=== PATIENT | male | born 1990 | race American Indian/Alaskan Native ===

== ENCOUNTER 2017-04-19 16:32 | Emergency (ER) | payer SELFPAY ==
[2017-04-19 16:35] VITALS: BMI 29.4
[2017-04-19 16:38] VITALS: O2SAT 100
--- NOTE | 2017-04-19 17:03 | ED PDOC ---
Arrival/HPI - General Chief Complaint: Back Pain Time Seen by Provider: 04/19/17 16:38 Historian: Patient - History of Present Illness Narrative History of Present Illness (Text): 04/19/17 17:00 26yo male with no PMHx present with sever lower back pain, 01/27. Pain is with movement. 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 Note that he slipped and fell down 6steps this morning. His pain became worse after the trauma. He took 4tabs of Ibuprofen 6oomg with mild relieve. Denies hitting his head, LOC, urinary/fecal incontinence, focal weakness, abdominal pain, nausea, vomiting, chest pain. Past Medical History - Provider Review Nursing Documentation Reviewed: Yes - Infectious Disease Hx of Infectious Diseases: None - Psychiatric Hx Substance Use: No - Surgical History Other/Comment: b/l knee surgery - Anesthesia Hx Anesthesia: Yes Hx Anesthesia Reactions: No Family/Social History - Physician Review Nursing Documentation Reviewed: Yes Family/Social History: Unknown Family HX Smoking Status: Current Some Days Smoker Hx Alcohol Use: No Hx Substance Use: No Allergies/Home Meds Allergies/Adverse Reactions: Allergies No Known Allergies Allergy (Verified 04/19/17 16:35) Review of Systems - Physician Review All systems were reviewed & negative as marked: Yes - Review of Systems Constitutional: Normal Eyes: Normal ENT: Normal Respiratory: Normal Cardiovascular: Normal Gastrointestinal: Normal Genitourinary Male: Normal Musculoskeletal: Back Pain Skin: Normal Neurological: Normal Endocrine: Normal Hemo/Lymphatic: Normal Psychiatric: Normal Physical Exam Vital Signs Reviewed: Yes Vital Signs Temp Pulse Resp BP Pulse Ox 04/19/17 16:37 98.1 F 79 18 129/77 100 Temperature: Afebrile Blood Pressure: Normal Pulse: Regular Respiratory Rate: Normal Appearance: Positive for: Well-Appearing, Non-Toxic, Comfortable Pain Distress: None Mental Status: Positive for: Alert and Oriented X 3 - Systems Exam Head: Present: Atraumatic, Normocephalic Pupils: Present: PERRL Extroacular Muscles: Present: EOMI Conjunctiva: Present: Normal Mouth: Present: Moist Mucous Membranes Neck: Present: Normal Range of Motion Respiratory/Chest: Present: Clear to Auscultation, Good Air Exchange. No: Respiratory Distress, Accessory Muscle Use Cardiovascular: Present: Regular Rate and Rhythm, Normal S1, S2. No: Murmurs Abdomen: Present: Normal Bowel Sounds. No: Tenderness, Distention, Peritoneal Signs Genitourinary Male: No: Prostate Enlargement Back: Present: Paraspinal Tenderness (B/L), Pain with Leg Raise (Right leg) Upper Extremity: Present: Normal Inspection. No: Cyanosis, Edema Lower Extremity: Present: Normal Inspection. No: Edema Neurological: Present: GCS=15, CN II-XII Intact, Speech Normal Skin: Present: Warm, Dry, Normal Color. No: Rashes Psychiatric: Present: Alert, Oriented x 3, Normal Insight, Normal Concentration Medical Decision Making ED Course and Treatment: 04/19/17 17:40 Pt in ED for stated history. His pain was controlled in ED with Toradol and Valium. LS - No acute fracture noted On re evaluation he notes that his pain improved with medication. He was ambulatory with normal gait. He was neurologically intact. Xray result was DW the pt. He will DC home with NSAID and muscle relaxer for musculoskeletal pain. - RAD Interpretation Radiology Orders: 04/19/17 16:47 LS SPINE WITH OBL > 18 YRS OLD [RAD] Stat - Medication Orders Current Medication Orders: Discontinued Medications Diazepam (Valium) 5 mg PO ONCE ONE PRN Reason: Protocol Stop: 04/19/17 16:49 Last Admin: 04/19/17 16:58 Dose: 5 mg Ketorolac Tromethamine (Toradol) 60 mg IM STAT STA Stop: 04/19/17 16:48 Last Admin: 04/19/17 16:58 Dose: 60 mg MAR Pain Assessment Document 04/19/17 16:58 IT (Rec: 04/19/17 16:58 IT [email or web address]) Pain Reassessment Is this a pain reassessment? No Sleep Is patient sleeping during reassessment? No Presence of Pain Presence of Pain Yes Pain Scale Used Pain Scale Used Numeric Location Pain Location Body Site Back Description Description Constant IM Administration Charges Document 04/19/17 16:58 IT (Rec: 04/19/17 16:58 IT [email or web address]) Injection Site MAR Injection Site Left Deltoid Charges for Administration # of IM Administrations 1 Disposition/Present on Arrival - Present on Arrival Any Indicators Present on Arrival: No History of DVT/PE: No History of Uncontrolled Diabetes: No Urinary Catheter: No History of Decub. Ulcer: No History Surgical Site Infection Following: None - Disposition Have Diagnosis and Disposition been Completed?: Yes Diagnosis: Back strain Disposition: HOME/ ROUTINE Disposition Time: 17:50 Patient Plan: Discharge Condition: STABLE Discharge Instructions (ExitCare): Back Pain (ED) Additional Instructions: Apply warm compress to area, rest and medication follow up with your doctor Return to ED for any new or worsening symptoms Prescriptions: Cyclobenzaprine [Cyclobenzaprine HCl] 10 mg PO TID #12 tab Naproxen [Naprosyn] 500 mg PO BID #20 tablet Forms: [email or web address] (Mozambican), WORK NOTE
[2017-04-19 17:40] VITALS: BP 125/71; PULSE 74
[2017-04-19 17:59] VITALS: RESP 17; TEMP 98
--- NOTE | 2017-04-20 10:54 | RAD ---
PROCEDURE: Radiographs of the Lumbar Spine. HISTORY: back pain s/p trauma COMPARISON: No prior. FINDINGS: BONES: Normal alignment. No listhesis. No fracture. DISC SPACES: Unremarkable. OTHER FINDINGS: None. IMPRESSION: Unremarkable radiographs of the lumbar spine.
== END 2017-04-19 18:00 | disposition home or self-care (01) ==
LOC: ED 16:32
DX: S39.012A Strain of muscle, fascia and tendon of lower back, initial encounter (principal); W10.9XXA Fall (on) (from) unspecified stairs and steps, initial encounter
CPT/HCPCS: 72110; 96372; 99283; J1885

== ENCOUNTER 2017-05-26 03:30 | Emergency (ER) | payer BC ==
[2017-05-26 03:31] VITALS: BMI 29.4
[2017-05-26 03:47] VITALS: RESP 20
[2017-05-26] MEDS ORDERED: Sodium Chloride 0.9% 1,000 ML IV SCH (04:00)
--- NOTE | 2017-05-26 04:14 | ED PDOC ---
Arrival/HPI - General Chief Complaint: Cough, Cold, Congestion Time Seen by Provider: 05/26/17 03:48 Historian: Patient - History of Present Illness Narrative History of Present Illness (Text): 05/26/17 04:13 A 26 year old male presents to the emergency department complaining of fever, weakness, dizziness and nasal congestion for the past several days. Patient reports he hasn't slept. Patient denies any vomiting, chest pain or any other complaints at this time. Time/Duration: < week Symptom Onset: Sudden Symptom Course: Unchanged Activities at Onset: Rest Context: Home Past Medical History - Provider Review Nursing Documentation Reviewed: Yes - Infectious Disease Hx of Infectious Diseases: None - Psychiatric Hx Substance Use: No - Surgical History Other/Comment: b/l knee surgery - Anesthesia Hx Anesthesia: Yes Hx Anesthesia Reactions: No Family/Social History - Physician Review Nursing Documentation Reviewed: Yes Family/Social History: No Known Family HX Smoking Status: Heavy Smoker > 10 Cigarettes Daily Hx Alcohol Use: No Hx Substance Use: No Allergies/Home Meds Allergies/Adverse Reactions: Allergies No Known Allergies Allergy (Verified 05/26/17 03:46) Review of Systems - Physician Review All systems were reviewed & negative as marked: Yes - Review of Systems Constitutional: Fevers, Other (weakness) ENT: Other (nasal congestion) Cardiovascular: absent: Chest Pain Gastrointestinal: absent: Vomiting Neurological: Dizziness Physical Exam Vital Signs Reviewed: Yes Vital Signs Temp Pulse Resp BP Pulse Ox 05/26/17 06:41 98.6 F 60 20 121/87 98 05/26/17 03:46 98.4 F 77 20 138/95 H 100 05/26/17 03:41 98.4 F 82 18 138/95 H 100 Temperature: Afebrile Blood Pressure: Hypertensive Pulse: Regular Respiratory Rate: Normal Appearance: Positive for: Well-Appearing, Non-Toxic, Comfortable Pain Distress: None Mental Status: Positive for: Alert and Oriented X 3 - Systems Exam Head: Present: Atraumatic, Normocephalic Pupils: Present: PERRL Extroacular Muscles: Present: EOMI Conjunctiva: Present: Normal Mouth: Present: Moist Mucous Membranes Neck: Present: Normal Range of Motion Respiratory/Chest: Present: Clear to Auscultation, Good Air Exchange. No: Respiratory Distress, Accessory Muscle Use Cardiovascular: Present: Regular Rate and Rhythm, Normal S1, S2. No: Murmurs Abdomen: Present: Normal Bowel Sounds. No: Tenderness, Distention, Peritoneal Signs Back: Present: Normal Inspection Upper Extremity: Present: Normal Inspection. No: Cyanosis, Edema Lower Extremity: Present: Normal Inspection. No: Edema Neurological: Present: GCS=15, CN II-XII Intact, Speech Normal Skin: Present: Warm, Dry, Normal Color. No: Rashes Psychiatric: Present: Alert, Oriented x 3, Normal Insight, Normal Concentration Medical Decision Making ED Course and Treatment: 05/26/17 04:11 Impression: A 26 year old male with fever, weakness, dizziness and nasal congestion. Plan: -- labs -- Urinalysis -- IV fluids -- Reassess and disposition Prior Visits: Notes and results from previous visits were reviewed. Patient was last seen in the emergency department on 04/19/17 for evaluation of lower back pain. Progress Notes: - Lab Interpretations Microbiology Results: Microbiology Results 05/26/17 04:18 Throat Group A Strep Throat Culture - Final NO BETA STREP GROUP A ISOLATED. Lab Results: 05/26/17 04:18 05/26/17 04:18 Lab Results 05/26/17 04:20: Urine Color Yellow, Urine Appearance Clear, Urine pH 6.0, Ur Specific [place] 1.010, Urine Protein Negative, Urine Glucose (UA) Negative, Urine Ketones Negative, Urine Blood Negative, Urine Nitrate Negative, Urine Bilirubin Negative, Urine Urobilinogen 0.2, Ur Leukocyte Esterase Negative 05/26/17 04:18: Influenza Typ A,B (EIA) Negative for flu a/b, Grp A Beta Strep Ag Negative 05/26/17 04:18: Sodium 139, Potassium 3.8, Chloride 104, Carbon Dioxide 26, Anion Gap 13, BUN 14, Creatinine 1.0, Est GFR ( Amer) > 60, Est GFR (Non- Af Amer) > 60, Random Glucose 143 H, Calcium 8.9, Total Bilirubin 0.5, AST 44, ALT 33, Alkaline Phosphatase 48, Total Protein 7.0, Albumin 4.1, Globulin 3.0, Albumin/Globulin Ratio 1.4 05/26/17 04:18: WBC 8.4, RBC 4.52, Hgb 14.7, Hct 41.8 L, MCV 92.5, MCH 32.5, MCHC 35.2, RDW 12.7, Plt Count 223, MPV 9.0, Gran % 66.7, Lymph % (Auto) 19.5 L , [place] % (Auto) 11.4 H, Eos % (Auto) 2.0, Baso % (Auto) 0.4, Gran # 5.63, Lymph # 1.7, [place] # 1.0 H, Eos # 0.2, Baso # 0.03 I have reviewed the lab results: Yes - Medication Orders Current Medication Orders: Discontinued Medications Sodium Chloride (Sodium Chloride 0.9%) 1,000 mls @ 200 mls/hr IV .Q5H ARMANDO Last Admin: 05/26/17 04:00 Dose: 200 mls/hr eMAR Start Stop Document 05/26/17 04:00 SS (Rec: 05/26/17 05:27 SS [id number]) Intravenous Solution Start Date 05/26/17 Start Time 04:00 - Scribe Statement The provider has reviewed the documentation as recorded by the Valeriaibemilie Unger Provider Scribe Attestation: All medical record entries made by the Scribe were at my direction and personally dictated by me. I have reviewed the chart and agree that the record accurately reflects my personal performance of the history, physical exam, medical decision making, and the department course for this patient. I have also personally directed, reviewed, and agree with the discharge instructions and disposition. Disposition/Present on Arrival - Present on Arrival Any Indicators Present on Arrival: No History of DVT/PE: No History of Uncontrolled Diabetes: No Urinary Catheter: No History of Decub. Ulcer: No History Surgical Site Infection Following: Orthopedic Procedures - Disposition Have Diagnosis and Disposition been Completed?: Yes Diagnosis: Viral syndrome Disposition: HOME/ ROUTINE Disposition Time: 06:45 Condition: GOOD Discharge Instructions (ExitCare): Viral Syndrome (ED) Prescriptions: Fexofenadine/Pseudoephedrine [Minda-D 12 Hour Tablet] 1 each PO BID #14 tab.er.12h Forms: [employer] (Welsh)
[2017-05-26 04:27] LABS: BASO # 0.03 K/mm3 (0.0-2.0); BASO % 0.4 % (0.0-3.0); EOS # 0.2 (0.0-0.7); GRAN # 5.63 (1.4-6.5); GRAN % 66.7 % (50.0-68.0); HEMATOCRIT 41.8 % (42.0-52.0); LYMPH # 1.7 (1.2-3.4); LYMPH % 19.5 % (22.0-35.0); MEAN CELL VOLUME 92.5 fl (80.0-105.0); MEAN CORPUSCULAR HEMOGLOBIN 32.5 pg (25.0-35.0); MEAN CORPUSCULAR HGB CONC 35.2 g/dl (31.0-37.0); MONO % 11.4 % (1.0-6.0); RED CELL DISTRIBUTION WIDTH 12.7 % (11.5-14.5); WHITE BLOOD COUNT 8.4 10^3/ul (4.5-11.0)
[2017-05-26 04:34] LABS: ALB/GLOB RATIO 1.4 (1.1-1.8); BILIRUBIN,TOTAL 0.5 mg/dL (0.2-1.3); CALCIUM 8.9 mg/dL (8.4-10.5); GFR AFRICAN-AMERICAN > 60; GLUCOSE,RANDOM 143 mg/dL (70-110)
[2017-05-26 04:55] LABS: URINE BILIRUBIN NEGATIVE (NEGATIVE); URINE BLOOD NEGATIVE (NEGATIVE); URINE GLUCOSE (UA) NEGATIVE (NEGATIVE); URINE KETONE NEGATIVE (NEGATIVE); URINE LEUKOCYTE ESTERASE NEGATIVE Leu/uL (NEGATIVE); URINE PROTEIN NEGATIVE mg/dL (<30 mg/dL); URINE UROBILINOGEN 0.2 E.U./dL (<1 E.U./dL)
[2017-05-26 04:57] LABS: URINE APPEARANCE CLEAR (CLEAR); URINE COLOR YELLOW (YELLOW)
[2017-05-26 05:16] LABS: ALKALINE PHOSPHATASE 48 U/L (38-126); ALT/SGPT 33 U/L (7-56); AST/SGOT 44 U/L (17-59); BLOOD UREA NITROGEN 14 mg/dL (7-21); CARBON DIOXIDE 26 mmol/L (21-33); CHLORIDE 104 mmol/L (98-107); POTASSIUM 3.8 mmol/L (3.6-5.0); SODIUM 139 mmol/L (132-148)
[2017-05-26 06:42] VITALS: BP 121/87; PULSE 60; TEMP 98.6; O2SAT 98
== END 2017-05-26 06:49 | disposition home or self-care (01) ==
LOC: ED 03:30
DX: B34.9 Viral infection, unspecified (principal); F17.210 Nicotine dependence, cigarettes, uncomplicated
CPT/HCPCS: 80053; 81003; 85025; 87070; 87430; 87804; 99283; J7040

== ENCOUNTER 2018-06-29 20:07 | Observation (INO) | payer SELFPAY ==
[2018-06-29 20:33] VITALS: BMI 29.4
--- NOTE | 2018-06-29 20:38 | ED PDOC ---
Arrival/HPI - General Time Seen by Provider: 06/29/18 20:22 Historian: Patient - History of Present Illness Narrative History of Present Illness (Text): 06/29/18 20:32 27 m with hx lumbar HNP presents to the emergency department with chief complaint severe low back pain radiating into the right leg. Patient recently diagnosed with lumbar HNP, is scheduled for surgery with spinal surgeon in [place]. Patient reports he feels numbness in his right lower leg and tingling/numbness in his proximal medical thigh/groin area which started today with the pain. Patient states he has had numbness in the right foot, but the new areas of numbness he has not experienced before. Patient states this acute exacerbation of pain began while walking at the store. Past Medical History - Provider Review Nursing Documentation Reviewed: Yes - Infectious Disease Hx of Infectious Diseases: None - Psychiatric Hx Substance Use: No - Surgical History Other/Comment: b/l knee surgery - Anesthesia Hx Anesthesia: Yes Hx Anesthesia Reactions: No Family/Social History - Physician Review Nursing Documentation Reviewed: Yes Family/Social History: No Known Family HX Smoking Status: Heavy Smoker > 10 Cigarettes Daily Hx Alcohol Use: No Hx Substance Use: No Allergies/Home Meds Allergies/Adverse Reactions: Allergies No Known Allergies Allergy (Verified 05/26/17 03:46) Home Medications: Home Meds Medication Instructions Recorded Confirmed No Known Home Med 06/29/18 06/29/18 Review of Systems - Physician Review All systems were reviewed & negative as marked: Yes - Review of Systems Musculoskeletal: Back Pain (severe low back pain radiating into the right leg) Neurological: Other (numbness in his right lower leg and tingling/numbness in his proximal medical thigh/groin area) Physical Exam - Physical Exam Narrative Physical Exam (Text): 06/29/18 20:35 Gen: VS reviewed, alert, well developed, well nourished, nontoxic, severe distress second to pain Eye: EOMI, PERRL Neck: no JVD, supple, no adenopathy CV: regular rate, regular rhythm Abd: soft, nontender Ext: no edema Skin: good color, no rash, no cyanosis Psych: responds appropriately to questions, normal affect Neuro: oriented x3, CN2-12 intact grossly, motor intact but full lower extremity exam limited as the patient is in severe pain, there is numbness in the right medial lower leg, there is diminished sensation in the dorsum of the right foot, there is diminished sensation in the saddle area, sensation intact left lower leg. Medical Decision Making ED Course and Treatment: 06/29/18 20:37 Impression: Patient is is severe pain from known lumbar HNP with concern for cauda equina syndrome with new and progressive lower extremity numbness. will need mri lumbar spine tonight. Plan: -- Spinal Canal Lumbar CT -- Toradol -- Morphine -- Percocet -- Reassess and disposition Progress Notes: 06/30/18 02:[address] rodríguez to the hospitalist service. patient to be admitted for intractable pain, recommend spinal surgery consult for possible local intervention for pain. - RAD Interpretation Narrative RAD Interpretations (Text): 06/30/2018 01:[address] IMPRESSION: Moderate focal spondylosis. Straightening of the lumbar lordosis, probably muscular spasm and pain. Dictator: Noé Mckeon MD 06/30/2018 01:19 MRI Lumbar Spine FINDINGS: There is normal signal intensity from the visualized bone marrow without evide nce of replacement or acute fracture. The conus is unremarkable. Straightening of the lumbar lordosis. The vertebral alignment is within normal limits. Evaluation of the individual levels revealed the following: L5-S1: There is moderate focal spondylosis. Findings are demonstrated by disc dehydration, disc space narrowing, osteophyte formation and degenerative endplate changes. Moderate diffuse disc bulge. Bilateral facet joint arthropathy. The spinal canal is not narrowed. There is mild bilateral neural foramina narrowing. L4-5: There is no evidence of disk herniation. The spinal canal is not narrowed. There is no evidence of neural foramina narrowing. L3-4: There is no evidence of disk herniation. The spinal canal is not narrowed. There is no evidence of neural foramina narrowing. L2-3: There is no evidence of disk herniation. The spinal canal is not narrowed. There is no evidence of neural foramina narrowing. L1-2: There is no evidence of disk herniation. The spinal canal is not narrowed. There is no evidence of neural foramina narrowing. Normal visualized paraspinour soft tissue structures. IMPRESSION: Moderate focal spondylosis. Straightening of the lumbar lordosis, probably muscular spasm and pain. Dictator: Noé Mckeon MD Radiology Orders: 06/29/18 20:32 SPINAL CANAL LUMBAR W/O CONT [MRI] Stat - Medication Orders Current Medication Orders: Oxycodone/Acetaminophen (Percocet 5/325 Mg Tab) 2 tab PO STAT STA Stop: 06/29/18 20:33 Disposition/Present on Arrival - Present on Arrival Any Indicators Present on Arrival: No History of DVT/PE: No History of Uncontrolled Diabetes: No Urinary Catheter: No History Surgical Site Infection Following: Orthopedic Procedures - Disposition Have Diagnosis and Disposition been Completed?: Yes Diagnosis: Radiculopathy of lumbosacral region, Intractable back pain Disposition: HOSPITALIZED Disposition Time: 02:52 Patient Plan: Observation Condition: STABLE
[2018-06-29] MEDS: Oxycodone/Acetaminophen 5/325 mg Tab PO STA ×2 (20:53→21:24)
[2018-06-29 21:55] LABS: BLOOD UREA NITROGEN 19 mg/dL (7-21); CALCIUM 9.4 mg/dL (8.4-10.5); GFR NON-AFRICAN AMERICAN > 60
[2018-06-29 22:06] LABS: BARBITURATES, UR NEGATIVE (NEGATIVE); BENZODIAZEPINES, UR NEGATIVE (NEGATIVE); OPIATES, UR NEGATIVE (NEGATIVE); PHENCYCLIDINE, UR NEGATIVE (NEGATIVE)
[2018-06-29 22:25] LABS: HEMOGLOBIN 14.6 g/dL (14.0-18.0); MEAN CELL VOLUME 92.2 fl (80.0-105.0); MEAN CORPUSCULAR HEMOGLOBIN 31.7 pg (25.0-35.0); MEAN CORPUSCULAR HGB CONC 34.4 g/dl (31.0-37.0); RBC 4.6 10^6/uL (3.5-6.1); WHITE BLOOD COUNT 6.5 10^3/uL (4.5-11.0)
[2018-06-29 22:26] LABS: BASO # 0.01 K/mm3 (0.0-2.0); BASO % 0.2 % (0.0-3.0); EOS # 0.1 (0.0-0.7); EOS % 1.7 % (1.5-5.0); GRAN # 2.9 (1.4-6.5); GRAN % 44.7 % (50.0-68.0); LYMPH # 2.7 (1.2-3.4); LYMPH % 41.5 % (22.0-35.0); MONO # 0.8 (0.1-0.6); MONO % 11.9 % (1.0-6.0); RED CELL DISTRIBUTION WIDTH 12.8 % (11.5-14.5)
[2018-06-29] MEDS ORDERED: Morphine 4 mg/ml ISec IVP STA (22:40)
[2018-06-30] MEDS ORDERED: Morphine 4 mg/ml ISec IVP STA (00:09)
[2018-06-30] MEDS ORDERED: HYDROmorphone 1 mg/ml ISec IVP PRN (03:10)
[2018-06-30] MEDS ORDERED: HYDROmorphone 1 mg/ml ISec IVP ONE (03:12)
[2018-06-30] MEDS ORDERED: Sodium Chloride 0.9% 1,000 ML IV SCH (03:15)
--- NOTE | 2018-06-30 03:48 | CP.PCM.HP ---
<Ed Barber - Last Filed: 06/30/18 03:32> History of Present Illness - History of Present Illness History of Present Illness: Ed Barber PGY1 - Internal Medicine [employer] - Medicine H&P CC: Intractable Lower Back Pain 27M w/ a PMH of lumbar disk herniation 2/[address] (03/13) presented to [facility] ED ON 06/30 w/ c/o intractable lower back pain and new onset inguinal numbness/tingling. Patient reported that on 03/13 he suffered a workplace injury which threw him and subsequently resulted MSK injuries to RLE as well as a herniated disk in his lower back. Patient reported since the injury he has had mild numbness/tingling of the right foot and decreased function of the RLE altogether. He follows up w/ a spinal surgeon at [facility] who had seen today prior to presenting to [facility]. He reported that prior to admission today he had an acute onset of intractable back pain located in his lumbar spine and new onset of numbness/tingling of his R inner thigh/ inguinal area. He denies any loss of bowel and bladder function; he reports his back pain is a constant throbb ing/sharp pain worse with movement. Patient reported he is scheduled for nerve ablation on 07/10 Upon ROS he denies: CP, Palpitations, SOB, Abd pain, NVDC, Hematuria/dyruria, headache, dizziness. PMD: Denies PSH: R Meniscus surgery; R MCL repair w/ screws PMH: as above All: [employer] Social: 12 pack year active smoker; Denies EtOH; IM Steroid use 1-2 years ago. Fam Hx: Non Contributory Present on Admission - Present on Admission Any Indicators Present on Admission: No Review of Systems - Review of Systems All systems: reviewed and no additional remarkable complaints except Review of Systems: as per HPI Past Patient History - Infectious Disease Hx of Infectious Diseases: None - Past Social History Smoking Status: Heavy Smoker > 10 Cigarettes Daily - PSYCHIATRIC Hx Substance Use: No - SURGICAL HISTORY Other/Comment: b/l knee surgery - ANESTHESIA Hx Anesthesia: Yes Hx Anesthesia Reactions: No Meds Allergies/Adverse Reactions: Allergies Allergy/AdvReac Type Severity Reaction Status Date / Time No Known Allergies Allergy Verified 05/26/17 03:46 Physical Exam - Constitutional Appears: Well, Non-toxic Additional comments: in pain, uncomfortable - Eye Exam Eye Exam: EOMI, Normal appearance, PERRL. absent: Scleral icterus - Cardiovascular Exam Cardiovascular Exam: Tachycardia, +S1, +S2. absent: Systolic Murmur - GI/Abdominal Exam GI & Abdominal Exam: Soft. absent: Tenderness - Extremities Exam Additional comments: LLE distal pulse 2+ RLE Distal pulse 1+ Numbness/tingling appreciate BL feet 5/5 Gross strength in LE however relative weakness in RLE compared to LLE Numbness in RLE toe - Back Exam Back exam: muscle spasm, vertebral tenderness Additional comments: Significant lumbar paraspinal tenderness w/ appreciable spasmodic changes Straight leg positive both RLE and LLE however increased sensativity to RLE raise - Neurological Exam Neurological exam: Alert, CN II-XII Intact, Oriented x3 - Psychiatric Exam Psychiatric exam: Anxious - Skin Skin Exam: Dry, Intact, Normal Color, Warm Results - Vital Signs Recent Vital Signs: Last Vital Signs Temp 97.9 F 06/29/18 20:43 Pulse 69 06/30/18 01:31 Resp 18 06/30/18 01:31 BP 106/61 06/30/18 01:31 Pulse Ox 100 06/30/18 01:31 - Labs Result Diagrams: 06/29/18 21:40 06/29/18 21:40 Labs: Laboratory Results - last 24 hr 06/29/18 06/29/18 06/29/18 21:40 21:40 21:40 WBC 6.5 RBC 4.60 Hgb 14.6 Hct 42.4 MCV 92.2 MCH 31.7 MCHC 34.4 RDW 12.8 Plt Count 311 MPV 9.0 Gran % 44.7 L Lymph % (Auto) 41.5 H Russell % (Auto) 11.9 H Eos % (Auto) 1.7 Baso % (Auto) 0.2 Gran # 2.90 Lymph # (Auto) 2.7 Russell # (Auto) 0.8 H Eos # (Auto) 0.1 Baso # (Auto) 0.01 Sodium 138 Potassium 4.1 Chloride 105 Carbon Dioxide 26 Anion Gap 11 BUN 19 Creatinine 1.2 Est GFR ( Amer) > 60 Est GFR (Non-Af Amer) > 60 Random Glucose 104 Calcium 9.4 Urine Opiates Screen Negative Urine Methadone Screen Negative Ur Barbiturates Screen Negative Ur Phencyclidine Scrn Negative Ur Amphetamines Screen Negative U Benzodiazepines Scrn Negative U Oth Cocaine Metabols Negative U Cannabinoids Screen Negative Assessment & Plan - Assessment and Plan (Free Text) Assessment: 27M w/ a PMH of lumbar disk herniation 2/[address] trauma (03/13) presented to [facility] ED ON 06/30 w/ c/o intractable lower back pain and new onset inguinal numbness/tingling. Found to have significant disc bulge at L5-S1 as well as muscular spasm. Plan: Intractable back pain 2/2 musclar spasm in setting of L5/S1 Disc Herniation w/ new onset radiculopathy Least likely suspect cauda equina syndrome at this time; no complaints of overt saddle paresthesia / incontinence 06/29 - MRI Lumbar Spine - L5-S1 Focal spondylosis, Moderate disc bulge, degene rative end plate changes, BL neural foraminal narrowing, lumbar lordosis 2/2 muscular spasm/pain Pain refractory to 2oxy; 8 morphine; 30 ketorlac Start Dilaudid 1 Q4PRN Severe Pain Percocet 1 Q4 PRN Moderate Toradol 15 Q6H PRN Mild Flexeril 10 Stat Flexeril 5 TID PRN NS @ 100cc/hr No comment of inflammation within canal; no need for decadron at this time Neurology consulted, appreciate reccs PPX GI: not recommended DVT: Lovenox not recommended; SCD unavailable due to leg pain Patient was seen, examined, and discussed w/ attending Dr. Callie BARBER DO PGY1 INTERNAL MEDICINE - Date & Time Date: 06/30/18 Time: 04:26 <Charla Ledesma - Last Filed: 06/30/18 05:31> Results - Vital Signs Recent Vital Signs: Last Vital Signs Temp 97.9 F 06/29/18 20:43 Pulse 71 06/30/18 04:23 Resp 18 06/30/18 04:51 BP 116/82 06/30/18 04:23 Pulse Ox 100 06/30/18 04:23 - Labs Result Diagrams: 06/29/18 21:40 06/29/18 21:40 Labs: Laboratory Results - last 24 hr 06/29/18 06/29/18 06/29/18 21:40 21:40 21:40 WBC 6.5 RBC 4.60 Hgb 14.6 Hct 42.4 MCV 92.2 MCH 31.7 MCHC 34.4 RDW 12.8 Plt Count 311 MPV 9.0 Gran % 44.7 L Lymph % (Auto) 41.5 H Russell % (Auto) 11.9 H Eos % (Auto) 1.7 Baso % (Auto) 0.2 Gran # 2.90 Lymph # (Auto) 2.7 Russell # (Auto) 0.8 H Eos # (Auto) 0.1 Baso # (Auto) 0.01 Sodium 138 Potassium 4.1 Chloride 105 Carbon Dioxide 26 Anion Gap 11 BUN 19 Creatinine 1.2 Est GFR ( Amer) > 60 Est GFR (Non-Af Amer) > 60 Random Glucose 104 Calcium 9.4 Urine Opiates Screen Negative Urine Methadone Screen Negative Ur Barbiturates Screen Negative Ur Phencyclidine Scrn Negative Ur Amphetamines Screen Negative U Benzodiazepines Scrn Negative U Oth Cocaine Metabols Negative U Cannabinoids Screen Negative Attending/Attestation - Attestation I have personally seen and examined this patient.: Yes I have fully participated in the care of the patient.: Yes I have reviewed all pertinent clinical information: Yes
[2018-06-30] MEDS: Dexamethasone 4 mg/1 ml IVP SCH ×3 (06:50→17:00)
[2018-06-30 07:23] LABS: BASO # 0.01 K/mm3 (0.0-2.0); BASO % 0.1 % (0.0-3.0); GRAN # 7.17 (1.4-6.5); GRAN % 84.9 % (50.0-68.0); HEMOGLOBIN 14.8 g/dL (14.0-18.0); LYMPH # 1.2 (1.2-3.4); LYMPH % 14.5 % (22.0-35.0); MEAN CELL VOLUME 91.7 fl (80.0-105.0); MEAN CORPUSCULAR HEMOGLOBIN 31.5 pg (25.0-35.0); MEAN CORPUSCULAR HGB CONC 34.3 g/dl (31.0-37.0); MONO % 0.5 % (1.0-6.0); RBC 4.7 10^6/uL (3.5-6.1); RED CELL DISTRIBUTION WIDTH 12.7 % (11.5-14.5); WHITE BLOOD COUNT 8.4 10^3/uL (4.5-11.0)
[2018-06-30 07:40] LABS: ALB/GLOB RATIO 1.4 (1.1-1.8); ALBUMIN 4.6 g/dL (3.0-4.8); ALT/SGPT 22 U/L (7-56); AST/SGOT 25 U/L (17-59); BLOOD UREA NITROGEN 19 mg/dL (7-21); CALCIUM 9.7 mg/dL (8.4-10.5); GFR NON-AFRICAN AMERICAN > 60
--- NOTE | 2018-06-30 10:51 | MRI ---
Date of service: 06/29/2018 PROCEDURE: MR LUMBAR SPINE WITHOUT CONTRAST HISTORY: cauda equina COMPARISON: None available. TECHNIQUE: Multiecho multiplanar sequences were performed through the lumbar spine without the use of intravenous contrast. FINDINGS: Normal lumbar lordosis. Vertebral body heights are preserved. Marrow signal unremarkable. Conus medullaris unremarkable at the level of Paraspinal soft tissues are unremarkable. T12-L1: No disc herniation, spinal canal stenosis or neural foraminal narrowing. L1-2: No disc herniation, spinal canal stenosis or neural foraminal narrowing. L2-3: No disc herniation, spinal canal stenosis or neural foraminal narrowing. L3-4: No disc herniation, spinal canal stenosis or neural foraminal narrowing. L4-5: No disc herniation, spinal canal stenosis or neural foraminal narrowing. L5-S1: There is mild disc degeneration with mild disc bulging and loss of height. Mild facet arthropathy there is no stenosis. OTHER FINDINGS: The report concurs with the preliminary [facility] report IMPRESSION: L5-S1. Mild disc degeneration with mild disc bulging and loss of disc height. No evidence of stenosis
[2018-06-30] MEDS: Oxycodone/Acetaminophen 5/325 mg Tab PO PRN ×2 (13:27→21:23)
--- NOTE | 2018-06-30 16:14 | PN ---
DATE: 06/30/2018 LOCATION: He is in [place]. A consult was requested with one of my partners, Dr. Escamilla for this patient. The chart was reviewed. The patient has a spine surgeon already in [place] and has already been scheduled for surgery with that doctor. There is no evidence that this is a surgical emergency and this can be managed with pain medicine, until the patient can return to his physician. Therefore, as per discussion, the consult will be canceled and the patient will follow up with his own spinal surgeon once he can be mobilized and discharge from the hospital. According to nursing, he is only asking for pain medicine and not cooperating with physical therapy or trying to be mobilized, but that is something for his doctors to handle. Hector Irving MD
[2018-06-30 23:12] VITALS: TEMP 98.4
[2018-07-01] MEDS: Dexamethasone 4 mg/1 ml IVP SCH ×2 (00:26→06:16)
[2018-07-01 07:53] LABS: BASO # 0.01 K/mm3 (0.0-2.0); BASO % 0.1 % (0.0-3.0); GRAN # 10.75 (1.4-6.5); HEMOGLOBIN 14.2 g/dL (14.0-18.0); LYMPH # 1.3 (1.2-3.4); LYMPH % 9.8 % (22.0-35.0); MEAN CELL VOLUME 92.3 fl (80.0-105.0); MEAN CORPUSCULAR HEMOGLOBIN 31.2 pg (25.0-35.0); MEAN CORPUSCULAR HGB CONC 33.8 g/dl (31.0-37.0); MEAN PLATELET VOLUME 9.2 fl (7.0-11.0); MONO # 0.8 (0.1-0.6); MONO % 6.1 % (1.0-6.0); RBC 4.55 10^6/uL (3.5-6.1); RED CELL DISTRIBUTION WIDTH 12.8 % (11.5-14.5); WHITE BLOOD COUNT 12.8 10^3/uL (4.5-11.0)
[2018-07-01 08:03] LABS: ALB/GLOB RATIO 1.3 (1.1-1.8); ALT/SGPT 26 U/L (7-56); AST/SGOT 19 U/L (17-59); BLOOD UREA NITROGEN 19 mg/dL (7-21); CALCIUM 9.3 mg/dL (8.4-10.5); GFR NON-AFRICAN AMERICAN > 60
[2018-07-01 09:02] VITALS: BP 119/80; PULSE 70; RESP 18; O2SAT 97
--- NOTE | 2018-07-01 12:50 | CP.PCM.DIS ---
<Kadie Nguyen - Last Filed: 07/01/18 12:35> Provider - Provider Date of Admission: 06/30/18 02:52 Attending physician: Melissa Mensah MD Consults: 06/30/18 03:18 Case Management Referral Routine Comment: Physician Instructions: Reason For Exam: Reason for Referral: Discharge Planning Time Spent in preparation of Discharge (in minutes): 45 Diagnosis - Discharge Diagnosis (1) Intractable back pain Status: Acute (2) Radiculopathy of lumbosacral region Status: Chronic Hospital Course - Lab Results Lab Results: Most Recent Lab Values WBC 12.8 10^3/uL (4.5-11.0) H D 07/01/18 07:00 RBC 4.55 10^6/uL (3.5-6.1) 07/01/18 07:00 Hgb 14.2 g/dL (14.0-18.0) 07/01/18 07:00 Hct 42.0 % (42.0-52.0) 07/01/18 07:00 MCV 92.3 fl (80.0-105.0) 07/01/18 07:00 MCH 31.2 pg (25.0-35.0) 07/01/18 07:00 MCHC 33.8 g/dl (31.0-37.0) 07/01/18 07:00 RDW 12.8 % (11.5-14.5) 07/01/18 07:00 Plt Count 303 10^3/uL (120.0-450.0) 07/01/18 07:00 MPV 9.2 fl (7.0-11.0) 07/01/18 07:00 Gran % 84.0 % (50.0-68.0) H 07/01/18 07:00 Lymph % (Auto) 9.8 % (22.0-35.0) L 07/01/18 07:00 [place] % (Auto) 6.1 % (1.0-6.0) H 07/01/18 07:00 Eos % (Auto) 0.0 % (1.5-5.0) L 07/01/18 07:00 Baso % (Auto) 0.1 % (0.0-3.0) 07/01/18 07:00 Gran # 10.75 (1.4-6.5) H 07/01/18 07:00 Lymph # (Auto) 1.3 (1.2-3.4) 07/01/18 07:00 [place] # (Auto) 0.8 (0.1-0.6) H 07/01/18 07:00 Eos # (Auto) 0.0 (0.0-0.7) 07/01/18 07:00 Baso # (Auto) 0.01 K/mm3 (0.0-2.0) 07/01/18 07:00 Sodium 139 mmol/L (132-148) 07/01/18 07:00 Potassium 4.4 mmol/L (3.6-5.0) 07/01/18 07:00 Chloride 107 mmol/L (98-107) 07/01/18 07:00 Carbon Dioxide 25 mmol/L (21-33) 07/01/18 07:00 Anion Gap 12 (10-20) 07/01/18 07:00 BUN 19 mg/dL (7-21) 07/01/18 07:00 Creatinine 1.1 mg/dl (0.8-1.5) 07/01/18 07:00 Est GFR ( Amer) > 60 07/01/18 07:00 Est GFR (Non-Af Amer) > 60 07/01/18 07:00 Random Glucose 152 mg/dL (70-110) H 07/01/18 07:00 Calcium 9.3 mg/dL (8.4-10.5) 07/01/18 07:00 Phosphorus 2.7 mg/dL (2.5-4.5) 06/30/18 06:45 Magnesium 1.9 mg/dL (1.7-2.2) 06/30/18 06:45 Total Bilirubin 0.3 mg/dL (0.2-1.3) 07/01/18 07:00 AST 19 U/L (17-59) 07/01/18 07:00 ALT 26 U/L (7-56) 07/01/18 07:00 Alkaline Phosphatase 51 U/L (38-126) 07/01/18 07:00 Total Protein 7.1 g/dL (5.8-8.3) 07/01/18 07:00 Albumin 4.0 g/dL (3.0-4.8) 07/01/18 07:00 Globulin 3.2 gm/dL 07/01/18 07:00 Albumin/Globulin Ratio 1.3 (1.1-1.8) 07/01/18 07:00 Urine Opiates Screen Negative (NEGATIVE) 06/29/18 21:40 Urine Methadone Screen Negative (NEGATIVE) 06/29/18 21:40 Ur Barbiturates Screen Negative (NEGATIVE) 06/29/18 21:40 Ur Phencyclidine Scrn Negative (NEGATIVE) 06/29/18 21:40 Ur Amphetamines Screen Negative (NEGATIVE) 06/29/18 21:40 U Benzodiazepines Scrn Negative (NEGATIVE) 06/29/18 21:40 U Oth Cocaine Metabols Negative (NEGATIVE) 06/29/18 21:40 U Cannabinoids Screen Negative (NEGATIVE) 06/29/18 21:40 - Hospital Course Hospital Course: PGY1 Discharge Summary and Hospital Course for Dr. Mensah This is a 27-year-old M with a PMH of lumbar disk herniation 2/[address] (03/13) who presented to [facility] ED ON 06/30 with a chief complaint of intractable lower back pain and new onset inguinal numbness/tingling. Patient reported that on 03/13 he suffered a workplace injury which threw him and subsequently resulted in MSK injuries to RLE as well as a herniated disk in his lower back. Patient reported since the injury he has had mild numbness/tingling of the right foot and decreased function of the RLE altogether. He follows up w/ a spinal surgeon at [facility] who had seen today prior to presenting to [facility]. Patient reported that prior to admission today he had an acute onset of intractable back pain located in his lumbar spine and new onset of numbness/tingling of his R inner thigh/ inguinal area. Patient denied any loss of bowel and bladder function; he reported his back pain is a constant throbbing/sharp pain worse with movement. Patient reported he is scheduled for nerve ablation on 07/10. Please see chart for more details. Patient subsequently admitted for observation and further evaluation of intractable back pain. MRI Lumbar Spine was obtained 06/29/18 and revealed L5-S1 focal spondylosis, moderate disc bulge, degenerative end plate changes, BL neural foraminal narrowing, lumbar lordosis. Patient's pain was refractory to oxy, morphine, and ketorlac. Thus, Patient was treated with dilauded as needed for severe pain, percocet as needed for moderate pain, and toradol as needed for mild pain. Patient also treated with flexeril as needed. Physical Therapy evaluated and treated the Patient. Please see chart for more details. On day of discharge, the Patient was medically stable and hemodynamically optimized for discharge to home. Patient wanted to go home, as he is able to follow-up with his PMD and already has surgery scheduled as per above. Patient was provided with detailed discharge instructions that were provided in detail both verbally and in writing to the level of the Patient's comprehension. Patient understands and agrees with all instructions. Please see chart for details. Discharge Medications: - Patient instructed to take medications as prescribed by his primary physician. No new medications prescribed to the Patient during this visit. Patient seen and case discussed in detail with Dr Rodrick Nguyen PGY1 Discharge Exam - Additional Findings Additional findings: - Constitutional Appears: Well, Non-toxic Additional comments: not complaining of pain, appears comfortable - Eye Exam Eye Exam: EOMI, Normal appearance, PERRL. absent: Scleral icterus - Cardiovascular Exam Cardiovascular Exam: Tachycardia, +S1, +S2. absent: Systolic Murmur - GI/Abdominal Exam GI & Abdominal Exam: Soft. absent: Tenderness - Extremities Exam Additional comments: LLE distal pulse 2+ RLE Distal pulse 1+ Numbness/tingling appreciate BL feet 5/5 Gross strength in LE however relative weakness in RLE compared to LLE Numbness in RLE toe - Back Exam Back exam: muscle spasm, vertebral tenderness Additional comments: Significant lumbar paraspinal tenderness w/ appreciable spasmodic changes - Neurological Exam Neurological exam: Alert, CN II-XII Intact, Oriented x3 - Skin Skin Exam: Dry, Intact, Normal Color, Warm Discharge Plan - Follow Up Plan Condition: STABLE Disposition: HOME/ ROUTINE Instructions: Radiculopathy (DC), Back Precautions, Back Pain (GEN) Additional Instructions: Follow up with your primary care physician within 3-5 days upon discharge Follow up with your scheduled neurosurgery appointment in the next 1-2 weeks Take medications as prescribed to you, no medications have been provided to you upon discharge Return to the emergency department if you begin experiencing loss of feeling in your extremities, inability to walk, or worsening of your symptoms <Melissa Mensah - Last Filed: 07/01/18 13:51> Provider - Provider Date of Admission: 06/30/18 02:52 Attending physician: Melissa Mensah MD Consults: 06/30/18 03:18 Case Management Referral Routine Comment: Physician Instructions: Reason For Exam: Reason for Referral: Discharge Planning Hospital Course - Lab Results Lab Results: Most Recent Lab Values WBC 12.8 10^3/uL (4.5-11.0) H D 07/01/18 07:00 RBC 4.55 10^6/uL (3.5-6.1) 07/01/18 07:00 Hgb 14.2 g/dL (14.0-18.0) 07/01/18 07:00 Hct 42.0 % (42.0-52.0) 07/01/18 07:00 MCV 92.3 fl (80.0-105.0) 07/01/18 07:00 MCH 31.2 pg (25.0-35.0) 07/01/18 07:00 MCHC 33.8 g/dl (31.0-37.0) 07/01/18 07:00 RDW 12.8 % (11.5-14.5) 07/01/18 07:00 Plt Count 303 10^3/uL (120.0-450.0) 07/01/18 07:00 MPV 9.2 fl (7.0-11.0) 07/01/18 07:00 Gran % 84.0 % (50.0-68.0) H 07/01/18 07:00 Lymph % (Auto) 9.8 % (22.0-35.0) L 07/01/18 07:00 [place] % (Auto) 6.1 % (1.0-6.0) H 07/01/18 07:00 Eos % (Auto) 0.0 % (1.5-5.0) L 07/01/18 07:00 Baso % (Auto) 0.1 % (0.0-3.0) 07/01/18 07:00 Gran # 10.75 (1.4-6.5) H 07/01/18 07:00 Lymph # (Auto) 1.3 (1.2-3.4) 07/01/18 07:00 [place] # (Auto) 0.8 (0.1-0.6) H 07/01/18 07:00 Eos # (Auto) 0.0 (0.0-0.7) 07/01/18 07:00 Baso # (Auto) 0.01 K/mm3 (0.0-2.0) 07/01/18 07:00 Sodium 139 mmol/L (132-148) 07/01/18 07:00 Potassium 4.4 mmol/L (3.6-5.0) 07/01/18 07:00 Chloride 107 mmol/L (98-107) 07/01/18 07:00 Carbon Dioxide 25 mmol/L (21-33) 07/01/18 07:00 Anion Gap 12 (10-20) 07/01/18 07:00 BUN 19 mg/dL (7-21) 07/01/18 07:00 Creatinine 1.1 mg/dl (0.8-1.5) 07/01/18 07:00 Est GFR ( Amer) > 60 07/01/18 07:00 Est GFR (Non-Af Amer) > 60 07/01/18 07:00 Random Glucose 152 mg/dL (70-110) H 07/01/18 07:00 Calcium 9.3 mg/dL (8.4-10.5) 07/01/18 07:00 Phosphorus 2.7 mg/dL (2.5-4.5) 06/30/18 06:45 Magnesium 1.9 mg/dL (1.7-2.2) 06/30/18 06:45 Total Bilirubin 0.3 mg/dL (0.2-1.3) 07/01/18 07:00 AST 19 U/L (17-59) 07/01/18 07:00 ALT 26 U/L (7-56) 07/01/18 07:00 Alkaline Phosphatase 51 U/L (38-126) 07/01/18 07:00 Total Protein 7.1 g/dL (5.8-8.3) 07/01/18 07:00 Albumin 4.0 g/dL (3.0-4.8) 07/01/18 07:00 Globulin 3.2 gm/dL 07/01/18 07:00 Albumin/Globulin Ratio 1.3 (1.1-1.8) 07/01/18 07:00 Urine Opiates Screen Negative (NEGATIVE) 06/29/18 21:40 Urine Methadone Screen Negative (NEGATIVE) 06/29/18 21:40 Ur Barbiturates Screen Negative (NEGATIVE) 06/29/18 21:40 Ur Phencyclidine Scrn Negative (NEGATIVE) 06/29/18 21:40 Ur Amphetamines Screen Negative (NEGATIVE) 06/29/18 21:40 U Benzodiazepines Scrn Negative (NEGATIVE) 06/29/18 21:40 U Oth Cocaine Metabols Negative (NEGATIVE) 06/29/18 21:40 U Cannabinoids Screen Negative (NEGATIVE) 06/29/18 21:40 Attending/Attestation - Attestation I have personally seen and examined this patient.: Yes I have fully participated in the care of the patient.: Yes I have reviewed all pertinent clinical information, including history, physical exam and plan: Yes Notes (Text): 07/01/18 13:47 Attending note; Patient seen and examined with resident. Patient is alert and awake. Still complaining of back discomfort. Got IV Toradol, Decadron and Percocet. Patient is a 27-year-old Male with PMH of lumbar disk herniation 2/[address] trauma (03/13) who presented to [facility] ED ON 06/30 with a chief complaint of intractable lower back pain and new onset inguinal numbness/tingling. Currently no urinary, bowel incontinence. No saddle anesthesia. Tingling is resolving. Still complaining of back pain. MRI of lumbar spine showed disc degeneration and disc bulge. PT evaluation appreciated. Patient did not do much with PT yesterday. The patient walks with crutches at home. Patient is agreeable for discharge. Patient wanted to follow up with spine surgery at [facility]. copy of MRI result given. No new prescriptions given. Patient has Motrin, Decadron at home. Upon discharge the patient will follow up with PMD of choice. 07/01/18 13:51
== END 2018-07-01 10:51 | disposition home or self-care (01) ==
LOC: ED 20:07 → ERH 06-30 02:52 → 5RSO 06-30 04:27
PROVIDERS: ADMIT Hospitalist; ATTEND Internal Medicine
DX: M54.17 Radiculopathy, lumbosacral region (principal); M40.56 Lordosis, unspecified, lumbar region; M47.9 Spondylosis, unspecified; M51.26 Other intervertebral disc displacement, lumbar region; M51.36 Other intervertebral disc degeneration, lumbar region; F17.210 Nicotine dependence, cigarettes, uncomplicated
CPT/HCPCS: 36415; 72148; 80048; 80053; 83735; 84100; 85025; 96374; 96375; 96376; 97162; 97530; 99285; G0378; G0480; G8978; G8979; J1100; J1170; J1885; J2270; J7030